=== PATIENT | female | born 1985 | race American Indian/Alaskan Native ===

== ENCOUNTER 2016-09-18 20:26 | Emergency (ER) | payer SELFPAY ==
[2016-09-18 20:43] VITALS: BMI 25.7
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
[2016-09-18 22:06] VITALS: BP 122/58; PULSE 78; TEMP 98; O2SAT 99
[2016-09-18 22:20] VITALS: RESP 16
== END 2016-09-18 22:20 | disposition home or self-care (01) ==
LOC: MERGE 20:26 → ED 20:26
DX: S00.83XA Contusion of other part of head, initial encounter (principal); S70.312A Abrasion, left thigh, initial encounter; S40.812A Abrasion of left upper arm, initial encounter; Y04.0XXA Assault by unarmed brawl or fight, initial encounter; Z32.02 Encounter for pregnancy test, result negative

== ENCOUNTER 2016-10-13 05:04 | Emergency (ER) | payer SELFPAY ==
[2016-10-13 05:04] VITALS: BMI 25.7
== END 2016-10-13 05:43 | disposition left against medical advice (07) ==
LOC: ED 05:04
DX: Z02.89 Encounter for other administrative examinations (principal); R51 Headache